=== PATIENT | male | born 1995 | race Caucasian/White ===

== ENCOUNTER 2018-07-27 20:36 | Emergency (ER) | payer BC ==
[~2018-07-27] VITALS: Ht 188 cm; Wt 70.5 kg
[2018-07-27] MEDS ORDERED: IBUP-1022 PO (22:29)
[2018-07-27 22:31] VITALS: BP 116/69
--- NOTE | 2018-07-28 01:37 | REP ---
Clinical: Shortness of breath . Comparison: None . Technique: PA and lateral. Findings: The mediastinum and cardiac silhouette are normal. The lung rogel are clear and without acute consolidation, effusion, or pneumothorax. The skeletal structures are intact and normal. Impression: 1. No acute cardiopulmonary process. Electronically Signed by Oleg Ortiz MD 07/28/2018 01:29 A
--- NOTE | 2018-07-28 05:45 | ECGEPIP ---
Stationary ECG Study [facility] - ED Test Date: 2018-07-27 Pat Name: VALERIANO BAL Department: Room: - Gender: M Bellmaker: MONCHO : 1995 Requested By: MARY GERONIMO PA-C. Order Number: [id number] Reading MD: Papi Schwartz Measurements Intervals [place] Rate: 57 P: 60 VA: 128 QRS: 71 QRSD: 113 T: 58 QT: 419 QTc: 408 Interpretive Statements SINUS BRADYCARDIA INCOMPLETE RIGHT BUNDLE BRANCH BLOCK BENIGN EARLY REPOLARIZATION NO PRIORS FOR COMPARISON Electronically Signed On 07-28-2018 5:44:41 EST by Papi Schwartz
== END 2018-07-27 22:41 | disposition home or self-care (01) ==
LOC: M ED 20:36
DX: R09.1 Pleurisy (principal)

== ENCOUNTER 2020-05-01 14:04 | Emergency (ER) | payer BC, MEDICAID ==
[~2020-05-01] VITALS: Ht 188 cm; Wt 67.2 kg
[~2020-05-01 14:04] MED LIST: IBUP-1022 PO
--- NOTE | 2020-05-01 14:31 | REP ---
INDICATION: trauma COMPARISON: None. TECHNIQUE: Four views left toes performed. FINDINGS: There is no evidence of acute fracture, dislocation, or intrinsic bone disease. IMPRESSION: No fracture or dislocation. <Electronically signed by Jewel Rice > 05/01/20 [id number]
[2020-05-01 15:04] VITALS: BP 123/65
== END 2020-05-01 15:05 | disposition home or self-care (01) ==
LOC: M ED 14:04
DX: S90.112A Contusion of left great toe without damage to nail, initial encounter (principal); W22.09XA Striking against other stationary object, initial encounter; Y92.019 Unspecified place in single-family (private) house as the place of occurrence of the external cause; Y93.9 Activity, unspecified

== ENCOUNTER → 2021-04-13 | Outpatient (CLI) | payer OTHER ==
--- NOTE | 2021-04-13 10:45 | REP ---
INDICATION: LT WRIST FX. COMPARISON: Left wrist 04/05/2021 TECHNIQUE: Three views of each side are provided. FINDINGS: LEFT WRIST: Fiberglass cast material is noted. The nondisplaced fracture through the radial styloid with intra-articular extension is difficult to discern. There is no displacement or distraction evident. Remainder of the distal radius, ulna metacarpals and MCP joints unremarkable. There is widening of the scapholunate joint without lunate subluxation or dislocation. Other carpal bones unremarkable. RIGHT WRIST: Distal radius and ulna intact carpal bones and the joint spaces are preserved. See no asymmetric widening of the scapholunate joint. No lunate subluxation or dislocation. Metacarpals, CMC and MCP joints included were unremarkable. IMPRESSION: 1. Fiberglass cast obscures the fracture line in the LEFT side radial styloid seen on radiograph last week there is no displacement or distraction. However there is asymmetric widening of the scapholunate joint and I could not exclude scapholunate ligament injury. Appropriate follow-up indicated. No lunate subluxation or dislocation. 2. RIGHT wrist without any definite acute bony finding. <Electronically signed by Car Truong > 04/13/21 [id number]
== END ==
LOC: M SOG 08:48
PROVIDERS: ATTEND Orthopaedic Surgery
DX: S52.512A Displaced fracture of left radial styloid process, initial encounter for closed fracture (principal); X58.XXXA Exposure to other specified factors, initial encounter; Y92.9 Unspecified place or not applicable

== ENCOUNTER → 2021-04-20 | Outpatient (CLI) | payer OTHER ==
--- NOTE | 2021-04-20 10:17 | REP ---
INDICATION: LT WRIST FX. COMPARISON: 04/13/[address] TECHNIQUE: Three views FINDINGS: Overlying casting material status quo. Previously described barely discernible fracture status quo. Widening of the scapholunate interval status quo. Possible ventral tilt to the lunate status quo. No discernible acute osseous abnormality has developed. IMPRESSION: Stable appearing chronic changes as described above. Consider follow-up with the cast off. <Electronically signed by Vincent Marcus > 04/20/21 [id number]
== END ==
LOC: M SOG 09:35
PROVIDERS: ATTEND Orthopaedic Surgery
DX: S52.515S Nondisplaced fracture of left radial styloid process, sequela (principal)

== ENCOUNTER → 2021-05-07 | Outpatient (CLI) | payer OTHER | LOC: M SOG 08:21 | PROVIDERS: ATTEND Orthopaedic Surgery | DX: S52.515D Nondisplaced fracture of left radial styloid process, subsequent encounter for closed fracture with routine healing (principal); X58.XXXD Exposure to other specified factors, subsequent encounter; Y93.9 Activity, unspecified; Y92.9 Unspecified place or not applicable ==

== ENCOUNTER → 2021-05-14 | Outpatient (CLI) | payer OTHER ==
--- NOTE | 2021-05-14 10:27 | REP ---
INDICATION: N. COMPARISON: Radiographs 04/05/2021, 04/13/2021, 04/20/2021, 05/07/2021. TECHNIQUE: Multiple sequences obtained in the axial, coronal and sagittal planes. FINDINGS: Triangular fibrocartilage complex:There is a tear of the triangular fibrocartilage complex at the ulnar styloid insertion. Scapholunate and lunatotriquetral ligaments: Intact. Flexor and extensor tendons: Intact. No tenosynovitis. Carpal tunnel region: No significant abnormality. No abnormal signal in median nerve. No ganglion cyst is seen. Joint fluid: There is a small radiocarpal joint effusion. Distal radioulnar joint: There is mild fluid in the distal radioulnar joint. Bone marrow:Nondisplaced intra-articular fracture of the radial styloid is again noted with associated marrow edema. There is diffuse edema in the triquetrum suggesting a bone bruise. IMPRESSION: Tear triangular fibrocartilage complex at the ulnar styloid insertion. Scapholunate ligament appears intact. Nondisplaced intra-articular fracture radial styloid with associated marrow edema. There is also diffuse edema in the triquetrum suggesting a bone bruise. <Electronically signed by Jewel Rice > 05/14/21 [id number]
== END ==
LOC: M PLAIMG 08:40
PROVIDERS: ATTEND Orthopaedic Surgery
DX: S52.515S Nondisplaced fracture of left radial styloid process, sequela (principal)

== ENCOUNTER → 2021-05-21 | Outpatient (CLI) | payer OTHER | LOC: M SOG 09:11 | PROVIDERS: ATTEND Orthopaedic Surgery | DX: S52.515D Nondisplaced fracture of left radial styloid process, subsequent encounter for closed fracture with routine healing (principal) ==